=== PATIENT | female | born 1975 | race Caucasian/White ===

== ENCOUNTER → 2023-10-31 | Day surgery (SDC) | payer OTHER ==
[~2023-10-31] MED LIST: Lactated Ringers 1,000 ML IV SCH
== END ==
LOC: CC.SDS 07:24
PROVIDERS: ATTEND Family Medicine
DX: Z12.11 Encounter for screening for malignant neoplasm of colon (principal); I10 Essential (primary) hypertension; L90.0 Lichen sclerosus et atrophicus; F32.A Depression, unspecified; F41.9 Anxiety disorder, unspecified; Z79.899 Other long term (current) drug therapy
CPT/HCPCS: 36415; 84703; J7120

== ENCOUNTER 2024-11-04 02:00 | Emergency (ER) | payer OTHER | END 2024-11-04 04:29 | disposition home or self-care (01) | LOC: CC.ED 02:00 | DX: K59.00 Constipation, unspecified (principal); I10 Essential (primary) hypertension; Z79.899 Other long term (current) drug therapy | CPT/HCPCS: 99283 ==